=== PATIENT | female | born 1980 | race Two or more races ===

== ENCOUNTER → 2019-04-15 20:46 | Emergency (ER) | payer OTHER ==
[~2019-04-15 20:46] MED LIST: DOXYcycline CAP(*) 100 MG PO ONE
--- NOTE | 2019-04-15 23:25 | ED ---
Skin Complaint - HPI Summary HPI Summary: Patient complains of redness, swelling and possible abscess to left side face 1 week. Denies purulent discharge, fever, cough, sore throat, CP, SOB, N/V/D, abdominal pain, change in BM, change in urine. History of hidradenitis. - History of Current Complaint Chief Complaint: EDRashSkinAbscess Time Seen by Provider: 04/15/19 22:56 Stated Complaint: ABSCESS ON FACE PER PT Hx Obtained From: Patient Onset/Duration: Started Days Ago Skin Exposure Onset/Duration: Days Ago Timing: Constant Onset Severity: Mild Current Severity: Moderate Pain Intensity: 8 Pain Scale Used: 0-10 Numeric Skin Location: Discrete Aggravating Symptom(s): Nothing Alleviating Symptom(s): Nothing Associated Signs & Symptoms: Negative - Additional Pertinent History Primary Care Physician: RUDY - Allergy/Home Medications Allergies/Adverse Reactions: Allergies Allergy/AdvReac Type Severity Reaction Status Date / Time MS Shellfish Allergy Allergy Rash Verified 10/24/16 13:58 [Shellfish Allergy] PMH/Surg Hx/FS Hx/Imm Hx Endocrine/Hematology History: Reports: Hx Anemia - ON MEDICATION FOR Denies: Hx Diabetes Cardiovascular History: Denies: Hx Hypertension, Hx Pacemaker/ICD Respiratory History: Reports: Hx Asthma, Hx Sleep Apnea GI History: Reports: Hx Gastroesophageal Reflux Disease - ON MEDICATION FOR, Hx Jaundice - AT History: Denies: Hx Renal Disease Musculoskeletal History: Reports: Hx Back Problems, Hx Fibromyalgia, Hx Tendonitis - HX OF, Other Musculoskeletal History - FIBROMYALGIA Sensory History: Reports: Hx Contacts or Glasses - GLASSES Denies: Hx Hearing Aid Opthamlomology History: Reports: Hx Contacts or Glasses - GLASSES Neurological History: Reports: Hx Migraine - NOT OFTEN-IBUPROFEN, Other Neuro Impairments/Disorders - BIPOLAR Psychiatric History: Reports: Hx Anxiety, Hx Depression, Hx Panic Disorder, Hx Post Traumatic Stress Disorder, Hx Bipolar Disorder, Other Psychiatric Issues/ Disorders - BIPOLAR DISORDER Denies: Hx of Violent Episodes Against Others - Surgical History Surgery Procedure, Year, and Place: C SECTION 2006. GASTRIC BYPASS -2016 Hx Anesthesia Reactions: No Infectious Disease History: No Infectious Disease History: Denies: Traveled Outside the [place] in Last 30 Days - Family History Known Family History: Positive: Non-Contributory - Social History Alcohol Use: Occasionally Substance Use Type: Reports: None Smoking Status (MU): Former Smoker Type: Cigarettes Amount Used/How Often: 1-2 CIGARETTES PER DAY ON AND OFF FOR 5 YEARS Length of Time of Smoking/Using Tobacco: a few years Have You Smoked in the Last Year: Yes Review of Systems Constitutional: Negative Eyes: Negative ENT: Negative Cardiovascular: Negative Respiratory: Negative Gastrointestinal: Negative Genitourinary: Negative Musculoskeletal: Negative Skin: Other Neurological: Negative Psychological: Normal All Other Systems Reviewed And Are Negative: Yes Physical Exam - Summary Physical Exam Summary: 2 cm x 2 cm apical abscess left lower jaw. Triage Information Reviewed: Yes Vital Signs On Initial Exam: Initial Vitals Temp Pulse Resp BP Pulse Ox 97.3 F 65 18 197/97 100 04/15/19 20:49 04/15/19 20:49 04/15/19 20:49 04/15/19 20:49 04/15/19 20:49 Vital Signs Reviewed: Yes Appearance: Positive: Well-Appearing Skin: Positive: Warm Head/Face: Positive: Normal Head/Face Inspection Eyes: Positive: Normal ENT: Positive: Normal ENT inspection Neck: Positive: Supple Respiratory/Lung Sounds: Positive: Clear to Auscultation Cardiovascular: Positive: Normal Abdomen Description: Positive: Nontender Musculoskeletal: Positive: Normal Neurological: Positive: Normal Psychiatric: Positive: Normal AVPU Assessment: Alert - [place] Coma Scale Best Eye Response: 4 - Spontaneous Best Motor Response: 6 - Obeys Commands Best Verbal Response: 5 - Oriented Coma Scale Total: 15 Procedures - Incision and Drainage 1 Site: left side jaw Anesthesia: Local, Lidocaine Instrument(s): Scalpel Diagnostics - Vital Signs Vital Signs Temp Pulse Resp BP Pulse Ox 04/15/19 20:49 97.3 F 65 18 197/97 100 - Laboratory Lab Statement: Any lab studies that have been ordered have been reviewed, and results considered in the medical decision making process. Course/Dx - Course Course Of Treatment: Patient complains of redness, swelling and possible abscess to left side face 1 week. Denies purulent discharge, fever, cough, sore throat, CP, SOB, N/V/D, abdominal pain, change in BM, change in urine. History of hidradenitis. Vital signs within normal limits. I and D performed with positive purulent drainage. Patient started on doxycycline in the ED. Rx for same. - Diagnoses Provider Diagnoses: Abscess Discharge - Sign-Out/Discharge Documenting (check all that apply): Patient Departure Patient Received Moderate/Deep Sedation with Procedure: No - Discharge Plan Condition: Stable Disposition: HOME Prescriptions: DOXYcycline CAP(*) [DOXYcycline 100MG CAP(*)] 100 mg PO BID 7 Days #14 cap Patient Education Materials: Abscess (ED) Forms: *Work Release Referrals: Lora Jackman NP [Primary Care Provider] - Additional Instructions: Use warm compresses to help drain. Take antibiotic as directed. Return to the ED for any worsening symptoms. - Billing Disposition and Condition Condition: STABLE Disposition: Home
[2019-04-15 23:43] VITALS: BP 166/83
== END | disposition home or self-care (01) ==
LOC: ED 20:46
DX: L02.01 Cutaneous abscess of face (principal); D64.9 Anemia, unspecified; K21.9 Gastro-esophageal reflux disease without esophagitis; M79.7 Fibromyalgia; Z91.013 Allergy to seafood; Z87.891 Personal history of nicotine dependence
CPT/HCPCS: 10060; 99282; A9270-GY

== ENCOUNTER 2019-08-24 06:08 | Emergency (ER) | payer OTHER ==
--- OUTSIDE RECORDS SUMMARY | 2019-08-24 06:17 | XMS REPORT | Continuity of Care Document ---
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 Problems Active Problems Provider Date Chronic low back pain Erick Estrella MD Onset: 04/29/2017 History of bariatric surgical procedure Erick Estrella MD Onset: 10/05/2016 Body mass index 30+ - obesity Erick Estrella MD Onset: 10/05/2016 Bipolar disorder in remission Erick Estrella MD Onset: 10/05/2016 Migraine without aura Erick Estrella MD Onset: 10/05/2016 Obstructive sleep apnea syndrome Onset: 02/11/2015 Hidradenitis Rosanna Gustafson Onset: 05/13/2014 Allergic condition Rosanna Gustafson Onset: 05/13/2014 Social History Type Date Description Comments Sex Unknown Cigarette Use Former Cigarette Smoker quit 2013 ETOH Use Occasionally consumes alcohol Recreational Drug Use Denies Drug Use Tobacco Use Start: Unknown End: Patient is a former smoker Unknown Smoking Status Reviewed: 07/15/19 Patient is a former smoker Exercise Type/Frequency Exercises regularly 2x/ week Seat Belt/Car Seat Always uses seat belt Allergies, Adverse Reactions, Alerts Active Allergies Reaction Severity Comments Date Seasonal Allergies 03/29/2015 Ethinyl Estradiol red, dry skin on face/chest 11/08/2016 Shellfish-Derived Products 05/28/2017 Medications Active Medications SIG Qnty Indications Ordering Date Provider Lisinopril 1 by mouth every 30tabs Steven 07/15/2019 5mg Tablets day MD Tabitha Humira qc weekly Erick Estrella 04/29/2017 40mg/0.8ML PSKT MD Michael Sumatriptan Succinate take 1 tablet by 9tabs Erick Estrella 10/05/2016 mouth every 2 MD Michael 50mg Tablets hours as directed for headache Clindamycin Phosphate apply twice 120units L73.2 RafitawaltJaidenalice 2015 1% daily to s M.D. Solution affected area Hibiclens apply from neck 236units L73.2 Katherine Jeffrey 08/07/2016 4% Liquid down qd for 5 s M.D. days, let dry for 4-5 minutes before rinsing off Ibuprofen three times a 90tabs S22.41xD Erick Estrella 04/26/2016 600mg Tablets day as needed MD Michael Fexofenadine HCL 1 by mouth every 30tabs 995.3 Rosanna Gustafson 02/14/2016 180mg day Tablets Fluticasone Propionate 2 sprays each 1units J30.9 Rosanna Gustafson 2015 nostril everyday 50mcg/Act Suspension Clonazepam Take 1/2 Tablet Unknown 1mg Tablets In The Morning And 1 Tablet AT Bedtime as Needed For A Oxycodone-Acetaminophe Take 1 Tablet By Unknown n Mouth 3 Times A 10-325mg Tablets Day Cyclobenzaprine HCL Take 1 Tablet By Unknown 10mg Mouth Twice A Tablets Day as Needed For Spasm Albuterol Sulfate 1 vial via 100units Rosanna Gustafson nebulizer 4 (2.5mg/3ML) 0.083% times daily as Nebulizer needed Ventolin HFA 2 puffs by mouth 1units Rosanna Gustafson 108(90Base) four times a day mcg/Act Aerosol as needed Immunizations CPT Code Status Date Vaccine Lot # [id number] Given 11/26/2014 Influenza Vaccine (Fluvirin) 3 Years Of Age Or Older Vital Signs Date Vital Result Comment 07/15/2019 8:40am BP Systolic 126 mmHg BP Diastolic 78 mmHg Height 64 inches 5'4" Weight 173.00 lb BMI (Body Mass Index) 29.7 kg/m2 Last Menstrual Period [id number] 2 Parity 2 09/24/2017 11:03am BP Systolic 124 mmHg BP Diastolic 86 mmHg Height 64 inches 5'4" Weight 209.00 lb BMI (Body Mass Index) 35.9 kg/m2 Last Menstrual Period [id number] 2 Parity 2 Results Description No Information Available Procedures Description No Information Available Medical Devices Description No Information Available Encounters Description No Information Available Assessments Description No Information Available Plan of Treatment No Information Available Functional Status Description No Information Available Mental Status Description No Information Available Referrals Description No Information Available
[2019-08-24] MEDS ORDERED: Ibuprofen TAB* 600 MG PO ONE (08:49)
[2019-08-24] MEDS ORDERED: Ondansetron ODT TAB* 4 MG SL ONE (08:49)
[2019-08-24 09:01] LABS: ABS Eosinophils 0.1 10^3/ul (0-0.6); ABS Lymphocytes 1.1 10^3/ul (1.0-4.8); ABS Monocytes 0.5 10^3/ul (0-0.8); ABS Neutrophils 4.4 10^3/ul (1.5-7.7); Eosinophil % 0.9 %; Hematocrit 34 % (35-47); Hemoglobin 11.5 g/dL (12.0-16.0); Lymphocyte % 18.3 %; Mean Corpuscular HGB Conc 34 g/dL (31-36); Mean Corpuscular Hemoglobin 31 pg (27-31); Mean Corpuscular Volume 90 fL (80-97); Mean Platelet Volume 9.9 fL (7.4-10.4); Nucleated Red Blood Cells % 0.1; Platelet Count 178 10^3/uL (150-450); Red Blood Count 3.77 10^6 /uL (3.70-4.87); Red Cell Distribution Width 13 % (10-15); White Blood Count 6.1 10^3/uL (3.5-10.8)
--- NOTE | 2019-08-24 09:26 | ED ---
Abdominal Pain/Female - HPI Summary HPI Summary: Patient is a 39-year-old female presenting with left sided abdominal pain. Patient states that she began having abdominal pain on Alexsander morning that has been constant since. Pain is localized to left side of abdomen. Admits to nausea and dry heaving, with no vomiting. Decreased oral intake for the last 3 days d/t nausea. Denies diarrhea, constipation. Continues to pass gas. Denies urinary frequency, burning, hematuria. LMP began 2 weeks ago and has been persistent. No PMH of PCOS, ovarian torsion, or ovarian cysts. No fevers, sweats, chills or back pain. No chance or hx of STD. No vaginal discharge or pain. Denies OCP use. - History of Current Complaint Chief Complaint: EDAbdPain Stated Complaint: ABD PAIN PER PT Time Seen by Provider: 08/24/19 08:10 Hx Obtained From: Patient Hx Last Menstrual Period: Started 2 weeks ago, current spotting Onset/Duration: Lasting Days Timing: Constant Severity Initially: Moderate Severity Currently: Moderate Pain Intensity: 8 Pain Scale Used: 0-10 Numeric Location: Discrete At: LLQ Aggravating Factor(s): Nothing Alleviating Factor(s): Nothing Associated Signs and Symptoms: Positive: Vaginal Bleeding, Nausea. Negative: Fever, Chest Pain, Constipation, Urinary Symptoms, Vomiting, Diarrhea Allergies/Adverse Reactions: Allergies Allergy/AdvReac Type Severity Reaction Status Date / Time drospirenone [From KISHOR (28)] Allergy See Comment Verified 08/24/19 06:12 ethinyl estradiol Allergy See Comment Verified 08/24/19 06:12 [From KISHOR (28)] MS Shellfish Allergy Allergy Rash Verified 08/24/19 06:12 [Shellfish Allergy] Home Medications: Home Medications Adalimumab (NF) [Humira Pen (NF)] 40 mg SUBCUT WEEKLY 08/24/19 [History Confirmed 08/24/19] Clindamycin 1% TOPICAL(NF) [Cleocin-T 1% TOPICAL(NF)] 1 applic TOPICAL BID 08/24 [History Confirmed 08/24/19] Fexofenadine (NF) [Kenia 180 (NF)] 180 mg PO DAILY 08/24/19 [History Confirmed 08/24/19] Fluticasone NASAL SPRAY 50MCG* [Flonase NASAL SPRAY 50MCG*] 2 spray BOTH NARES DAILY 08/24/19 [History Confirmed 08/24/19] Iron 65 mg PO DAILY 08/24/19 [History Confirmed 08/24/19] Lisinopril TAB* [Prinivil TAB*] 5 mg PO DAILY 08/24/19 [History Confirmed ] SUMAtriptan TAB* [Imitrex TAB*] 50 mg PO Q2H PRN 08/24/19 [History Confirmed 06/04] PMH/Surg Hx/FS Hx/Imm Hx Previously Healthy: Yes Endocrine/Hematology History: Reports: Hx Anemia - ON MEDICATION FOR Denies: Hx Diabetes Cardiovascular History: Denies: Hx Hypertension, Hx Pacemaker/ICD Respiratory History: Reports: Hx Asthma, Hx Sleep Apnea GI History: Reports: Hx Gastroesophageal Reflux Disease - ON MEDICATION FOR, Hx Jaundice - AT History: Denies: Hx Renal Disease Musculoskeletal History: Reports: Hx Back Problems, Hx Fibromyalgia, Hx Tendonitis - HX OF, Other Musculoskeletal History - FIBROMYALGIA Sensory History: Reports: Hx Contacts or Glasses - GLASSES Denies: Hx Hearing Aid Opthamlomology History: Reports: Hx Contacts or Glasses - GLASSES Neurological History: Reports: Hx Migraine - NOT OFTEN-IBUPROFEN, Other Neuro Impairments/Disorders - BIPOLAR Psychiatric History: Reports: Hx Anxiety, Hx Depression, Hx Panic Disorder, Hx Post Traumatic Stress Disorder, Hx Bipolar Disorder, Other Psychiatric Issues/ Disorders - BIPOLAR DISORDER Denies: Hx of Violent Episodes Against Others - Surgical History Surgery Procedure, Year, and Place: C SECTION 2006. GASTRIC BYPASS -2016 Hx Anesthesia Reactions: No - Immunization History Hx Pertussis Vaccination: No Immunizations Up to Date: Yes Infectious Disease History: No Infectious Disease History: Denies: Traveled Outside the [place] in Last 30 Days - Family History Known Family History: Positive: Non-Contributory - Social History Occupation: Unemployed Lives: With Family Alcohol Use: Occasionally Hx Substance Use: Yes Substance Use Type: Reports: Marijuana Substance Use Comment - Amount & Last Used: 2 weeks ago Hx Tobacco Use: Yes Smoking Status (MU): Former Smoker Type: Cigarettes Amount Used/How Often: 1-2 CIGARETTES PER DAY ON AND OFF FOR 5 YEARS Length of Time of Smoking/Using Tobacco: a few years Have You Smoked in the Last Year: Yes Review of Systems Positive: Chills. Negative: Fever, Fatigue Eyes: Negative ENT: Negative Cardiovascular: Negative Negative: Palpitations, Chest Pain Respiratory: Negative Negative: Shortness Of Breath, Cough Positive: Abdominal Pain - LLQ, Nausea. Negative: Vomiting, Diarrhea Genitourinary: Negative Positive: no symptoms reported. Negative: burning, dysuria, frequency, flank pain Musculoskeletal: Negative Negative: Myalgia Skin: Negative Neurological: Negative Psychological: Normal All Other Systems Reviewed And Are Negative: Yes Physical Exam Triage Information Reviewed: Yes Vital Signs On Initial Exam: Initial Vitals Temp Pulse Resp BP Pulse Ox 97.5 F 72 15 149/97 100 08/24/19 06:10 08/24/19 06:10 08/24/19 06:10 08/24/19 06:10 08/24/19 06:10 Vital Signs Reviewed: Yes Appearance: Positive: Well-Appearing, Well-Nourished, Pain Distress - mild- moderate pain distress Skin: Positive: Warm, Skin Color Reflects Adequate Perfusion, Dry Head/Face: Positive: Normal Head/Face Inspection Eyes: Positive: Normal, EOMI, ALESSANDRA, Conjunctiva Clear ENT: Positive: Normal ENT inspection Neck: Positive: Supple, Nontender, No Lymphadenopathy Respiratory/Lung Sounds: Positive: Clear to Auscultation, Breath Sounds Present. Negative: Rales, Rhonchi, Wheezes Cardiovascular: Positive: Normal, RRR, S1, S2. Negative: Murmur, Rub Abdomen Description: Positive: No Organomegaly, Soft, Other: - LLQ tenderness, suprapubic tenderness. Negative: CVA Tenderness (R), CVA Tenderness (L), Guarding, Hepatomegaly, Peritoneal Signs, Pulsatile Mass, Splenomegaly Bowel Sounds: Positive: Present Musculoskeletal: Positive: Normal Neurological: Positive: Normal, Alert, Oriented to Person Place, Time, CN Intact II-III Psychiatric: Positive: Normal, Anxious - [place] Coma Scale Best Eye Response: 4 - Spontaneous Best Motor Response: 6 - Obeys Commands Best Verbal Response: 5 - Oriented Coma Scale Total: 15 Procedures - Sedation Patient Received Moderate/Deep Sedation with Procedure: No Diagnostics - Vital Signs Vital Signs Temp Pulse Resp BP Pulse Ox 08/24/19 08:31 64 99 08/24/19 08:29 67 132/93 99 08/24/19 06:10 97.5 F 72 15 149/97 100 - Laboratory Lab Results: Lab Results 08/24/19 Range/Units 08:51 WBC 6.1 (3.5-10.8) 10^3/uL RBC 3.77 (3.70-4.87) 10^6 /uL Hgb 11.5 L (12.0-16.0) g/dL Hct 34 L (35-47) % MCV 90 (80-97) fL MCH 31 (27-31) pg MCHC 34 (31-36) g/dL RDW 13 (10-15) % Plt Count 178 (150-450) 10^3/uL MPV 9.9 (7.4-10.4) fL Neut % (Auto) 72.6 % Lymph % (Auto) 18.3 % [place] % (Auto) 7.9 % Eos % (Auto) 0.9 % Baso % (Auto) 0.3 % Absolute Neuts (auto) 4.4 (1.5-7.7) 10^3/ul Absolute Lymphs (auto) 1.1 (1.0-4.8) 10^3/ul Absolute Monos (auto) 0.5 (0-0.8) 10^3/ul Absolute Eos (auto) 0.1 (0-0.6) 10^3/ul Absolute Basos (auto) 0.0 (0-0.2) 10^3/ul Absolute Nucleated RBC 0.0 10^3/ul Nucleated RBC % 0.1 Result Diagrams: 08/24/19 08:51 08/24/19 08:51 Lab Statement: Any lab studies that have been ordered have been reviewed, and results considered in the medical decision making process. Abdominal Pain Fem Course/Dx - Course Course Of Treatment: During his course of treatment, the patient is evaluated for left-sided lower abdominal pain which is nonradiating. She denies any urinary symptoms or back pain. She states she had a "intestinal infection" several years ago into the left lower side, however at that time had symptoms of profuse vomiting, constipation and a blockage of the intestine which required a 2 day stay at [facility] [place]. She states she continues to have normal bowel movements. Menses present 2 weeks in which she describes as "spotting." Patient appears in mild acute distress, noting pain directly over the LLQ without associated vaginal symptoms or pain. She endorses nausea with no vomiting. She is given Zofran by mouth on arrival as well as ibuprofen. Labs obtained which are WNL. UA negative. On palpation, there is tenderness to the LLQ. Last BM normal and this morning. TVUS obtained which shows: IMPRESSION: FIBROID UTERUS. NO SONOGRAPHIC FEATURES OF TORSION. PLEASE NOTE THAT PARTIAL OR INTERMITTENT TORSION MAY BE SONOGRAPHICALLY NORMAL. Discussed treatment options with the patient. She continues to endorse pain to the left side and I have offered a CT scan at this time to further evaluate her symptoms. She will be discharged home with prescription for Zofran and will return if she has any worsening symptoms. I discussed if she develops any fevers, sweats, chills, worsening of lower quadrant pain, she will return to the ED immediately. Otherwise, she'll follow up with PCP. - Diagnoses Differential Diagnosis: Positive: Bowel Obstruction, Constipation, Diverticulitis, Irritable Bowel Syndrome, Ovarian Cyst, Other - fibroid uterus, ovarian torsion Provider Diagnoses: Abdominal pain Discharge ED - Sign-Out/Discharge Documenting (check all that apply): Patient Departure - Discharge Plan Condition: Stable Disposition: HOME Prescriptions: Ondansetron ODT TAB* [Zofran 4 MG Odt TAB*] 4 mg PO Q6H PRN #12 tab.odt MDD 4 PRN Reason: Nausea Patient Education Materials: Acute Abdominal Pain (ED) Referrals: Lora Jackman NP [Primary Care Provider] - Additional Instructions: Please follow up with obgyn regarding fibroid uterus It is unclear if this is the cause of your pain If you develop any worsening pain, please return to the ED You have been prescribed zofran for nausea Moist heat to the area may help your symptoms - Billing Disposition and Condition Condition: STABLE Disposition: Home
[2019-08-24 09:30] LABS: ALT 7 U/L (7-52); AST 10 U/L (13-39); Albumin 3.8 g/dL (3.2-5.2); Alkaline Phosphatase 46 U/L (34-104); Anion Gap 9 mmol/L (2-11); BUN/Creatinine Ratio 11.9 (8-20); Blood Urea Nitrogen 8 mg/dL (6-24); CO2 Carbon Dioxide 25 mmol/L (22-32); Calcium 8.8 mg/dL (8.6-10.3); Chloride 105 mmol/L (101-111); EGFR African American 119.8 (>60); Globulin 3.7 g/dL (2-4); Glucose 96 mg/dL (70-100); Potassium 3.4 mmol/L (3.5-5.0); Sodium 139 mmol/L (135-145); Total Protein 7.5 g/dL (6.4-8.9)
[2019-08-24 09:34] LABS: HCG Pregnancy < 0.60 mIU/mL
[2019-08-24 10:33] LABS: Urine Appearance Cloudy; Urine Bilirubin Negative (Negative); Urine Blood 1+ (Negative); Urine Color Yellow; Urine Glucose Negative (Negative); Urine Ketones 1+ (Negative); Urine Nitrite Negative (Negative); Urine Protein Negative (Negative); Urine Specific Gravity 1.016 (1.010-1.030); Urine Urobilinogen Negative (Negative)
[2019-08-24 10:42] LABS: Urine Bacteria Absent (Absent); Urine Red Blood Cell Absent (Absent); Urine Squamous Epithelial Cell Present (Absent); Urine White Blood Cell Trace(0-5/hpf) (Absent)
[2019-08-24 10:49] VITALS: BP 139/77
== END 2019-08-24 10:53 | disposition home or self-care (01) ==
LOC: ED 06:08
DX: R10.9 Unspecified abdominal pain (principal); D25.9 Leiomyoma of uterus, unspecified; D64.9 Anemia, unspecified; K21.9 Gastro-esophageal reflux disease without esophagitis; F41.9 Anxiety disorder, unspecified; F31.9 Bipolar disorder, unspecified; F43.10 Post-traumatic stress disorder, unspecified; Z87.891 Personal history of nicotine dependence; Z98.84 Bariatric surgery status; Z79.899 Other long term (current) drug therapy; Z88.8 Allergy status to other drugs, medicaments and biological substances
CPT/HCPCS: 36415; 76830; 80053; 81003; 81015; 84702; 85025; 87086; 99283; A9270-GY

== ENCOUNTER 2019-09-02 17:21 | Emergency (ER) | payer OTHER ==
[2019-09-02] MEDS ORDERED: Thiamine IV 100 MG, Folic Acid IV* 1 MG, Multiple Vitamin IV ADULT* 10 ML in NS 0.9% 10... IV ONE (19:35)
[2019-09-02] MEDS ORDERED: Ondansetron INJ* 2 MG/ML VIAL IV ONE (19:35)
[2019-09-02] MEDS ORDERED: Morphine 4 MG/ML VIAL (1 ml) 4 MG/ML VIAL IV ONE ×2 (19:35→21:06)
--- NOTE | 2019-09-02 19:39 | ED ---
Abdominal Pain/Female - HPI Summary HPI Summary: 39-year-old female status post Kaley-en-Y gastric bypass in 2016 presents to the emergency department today complaining of left lower quadrant pain that is radiating towards her umbilicus. Patient says she was referred here by her primary care provider for possible CT scan for investigation of her symptoms. Patient endorses being in the emergency department last week for similar symptoms. She currently endorses 10 out of 10 left lower quadrant pain which is "stabbing/burning". Patient states she has associated nausea, vomiting. She denies fever, changes in bowel movements, blood per rectum, rash. Family history and social history noncontributory. - History of Current Complaint Chief Complaint: EDAbdPain Stated Complaint: ABD PAIN PER PT Time Seen by Provider: 09/02/19 19:28 Hx Obtained From: Patient Hx Last Menstrual Period: Started 2 weeks ago, current spotting Onset/Duration: Gradual Onset Timing: Constant Severity Initially: Severe Severity Currently: Severe Pain Intensity: 10 Pain Scale Used: 0-10 Numeric Location: Diffuse, Discrete At: LLQ Radiates: No Character: Cramping Aggravating Factor(s): Movement Alleviating Factor(s): Nothing Associated Signs and Symptoms: Negative: Diaphoresis, Fever, Cough, Chest Pain, Back Pain, Constipation, Blood in Stool, Urinary Symptoms, Decreased Appetite, Vaginal Discharge, Nausea, Vomiting, Diarrhea Allergies/Adverse Reactions: Allergies Allergy/AdvReac Type Severity Reaction Status Date / Time drospirenone [From KISHOR (28)] Allergy See Comment Verified 08/24/19 06:12 ethinyl estradiol Allergy See Comment Verified 08/24/19 06:12 [From KISHOR (28)] MS Shellfish Allergy Allergy Rash Verified 08/24/19 06:12 [Shellfish Allergy] PMH/Surg Hx/FS Hx/Imm Hx Endocrine/Hematology History: Reports: Hx Anemia - ON MEDICATION FOR Denies: Hx Diabetes Cardiovascular History: Denies: Hx Hypertension, Hx Pacemaker/ICD Respiratory History: Reports: Hx Asthma, Hx Sleep Apnea GI History: Reports: Hx Gastroesophageal Reflux Disease - ON MEDICATION FOR, Hx Jaundice - AT History: Denies: Hx Renal Disease Musculoskeletal History: Reports: Hx Back Problems, Hx Fibromyalgia, Hx Tendonitis - HX OF, Other Musculoskeletal History - FIBROMYALGIA Sensory History: Reports: Hx Contacts or Glasses - GLASSES Denies: Hx Hearing Aid Opthamlomology History: Reports: Hx Contacts or Glasses - GLASSES Neurological History: Reports: Hx Migraine - NOT OFTEN-IBUPROFEN, Other Neuro Impairments/Disorders - BIPOLAR Psychiatric History: Reports: Hx Anxiety, Hx Depression, Hx Panic Disorder, Hx Post Traumatic Stress Disorder, Hx Bipolar Disorder, Other Psychiatric Issues/ Disorders - BIPOLAR DISORDER Denies: Hx of Violent Episodes Against Others - Surgical History Surgery Procedure, Year, and Place: C SECTION 2007. GASTRIC BYPASS -2016 Hx Anesthesia Reactions: No Infectious Disease History: No Infectious Disease History: Denies: Traveled Outside the [place] in Last 30 Days - Family History Known Family History: Positive: Non-Contributory - Social History Alcohol Use: Occasionally Hx Substance Use: Yes Substance Use Type: Reports: Marijuana Substance Use Comment - Amount & Last Used: 2 weeks ago Hx Tobacco Use: Yes Smoking Status (MU): Former Smoker Type: Cigarettes Amount Used/How Often: 1-2 CIGARETTES PER DAY ON AND OFF FOR 5 YEARS Length of Time of Smoking/Using Tobacco: a few years Have You Smoked in the Last Year: Yes Review of Systems Constitutional: Negative Eyes: Negative ENT: Negative Cardiovascular: Negative Respiratory: Negative Positive: Abdominal Pain, Nausea. Negative: Vomiting, Diarrhea Genitourinary: Negative Musculoskeletal: Negative Skin: Negative Neurological: Negative Psychological: Normal All Other Systems Reviewed And Are Negative: Yes Physical Exam Triage Information Reviewed: Yes Vital Signs On Initial Exam: Initial Vitals Temp Pulse Resp BP Pulse Ox 98.0 F 78 16 152/113 99 09/02/19 17:23 09/02/19 17:23 09/02/19 17:23 09/02/19 17:23 09/02/19 17:23 Vital Signs Reviewed: Yes Appearance: Positive: Well-Appearing, Well-Nourished. Negative: No Pain Distress Skin: Positive: Warm, Skin Color Reflects Adequate Perfusion Eyes: Positive: EOMI, ALESSANDRA ENT: Positive: Hearing grossly normal Respiratory/Lung Sounds: Positive: Clear to Auscultation, Breath Sounds Present Cardiovascular: Positive: RRR, S1, S2 Abdomen Description: Positive: Nontender, No Organomegaly, Soft, Other: - Negative Rovsing, McBurney's, obturator, psoas sign. Negative: CVA Tenderness ( R), CVA Tenderness (L), Distended, Guarding, McBurney's Point Tenderness, Peritoneal Signs, Pulsatile Mass Bowel Sounds: Positive: Present Musculoskeletal: Positive: Strength/ROM Intact Neurological: Positive: Sensory/Motor Intact, Alert, Oriented to Person Place, Time, Normal Gait, Speech Normal Psychiatric: Positive: Normal AVPU Assessment: Alert Procedures - Sedation Patient Received Moderate/Deep Sedation with Procedure: No Diagnostics - Vital Signs Vital Signs Temp Pulse Resp BP Pulse Ox 09/02/19 17:23 98.0 F 78 16 152/113 99 - Laboratory Result Diagrams: 09/02/19 19:48 09/02/19 19:48 Lab Statement: Any lab studies that have been ordered have been reviewed, and results considered in the medical decision making process. Abdominal Pain Fem Course/Dx - Course Course Of Treatment: Patient was evaluated in the emergency department today for abdominal pain. Laboratory showing no leukocytosis or sinus infection. CRP is mildly elevated at 65.2. No electrolyte derangements aside from potassium of 2.9 which was replaced using 40meq of oral potassium. CT scan of the abdomen and pelvis with contrast was performed which showed evidence of a left adnexal cystic structure and an unopacified bowel loop. General surgeon Dr. Martinez was consulted and suggested to have a delayed CT abdomen and pelvis repeated to investigate the nonvisible section of colon and to have an ultrasound done to evaluate adnexal cyst. Delayed CT of the abdomen and pelvis revealed no evidence of intestinal pathology and agreed with ultrasound which suggested 3.9 cm left ovarian parapelvic cyst. Patient was given 8 mg of morphine in the emergency department as well as IV Toradol for her symptoms. Patient is to follow up with her primary care physician as an outpatient for further evaluation and management of her symptoms. - Diagnoses Differential Diagnosis: Positive: Bowel Obstruction, Constipation, Diverticulitis, Ovarian Cyst - Do not, Urinary Tract Infection Provider Diagnoses: S/P gastric bypass, Abdominal pain - Provider Notifications Discussed Care Of Patient With: Job Lemon - suggested to obtain ultrasound of the abdomen and repeat delayed abdominal CT without contrast approximately 3 hours after the first. Time Discussed With Above Provider: 22:39 Discharge ED - Sign-Out/Discharge Documenting (check all that apply): Patient Departure - Discharge Plan Condition: Stable Disposition: HOME Patient Education Materials: Ovarian Cyst (ED) Forms: *Work Release Referrals: Lora Jackman NP [Primary Care Provider] - 3 Days Additional Instructions: You were seen in the emergency department today and diagnosed with a left adnexal cystic lesion measuring 3.2 cm. Most likely an ovarian cyst and will resolve on its own. Please follow up with your primary care provider in 3 days for further evaluation and management of your symptoms. Please take 600 mg every 6 hours ibuprofen for relief of pain. Please return to the emergency Department immediately if you develop any new or worsening symptoms. - Billing Disposition and Condition Condition: STABLE Disposition: Home - Attestation Statements Provider Attestation: I was available for consult. This patient was seen by the [facility]. The patient was not presented to, seen by, or examined by me. Quang Jeffery MD
[2019-09-02] MEDS ORDERED: NS 0.9% 1000 ML** 1,000 ML ONE (19:44)
[2019-09-02 19:55] LABS: ABS Eosinophils 0.1 10^3/ul (0-0.6); ABS Lymphocytes 1.4 10^3/ul (1.0-4.8); ABS Monocytes 0.5 10^3/ul (0-0.8); ABS Neutrophils 6.5 10^3/ul (1.5-7.7); Eosinophil % 0.6 %; Hematocrit 33 % (35-47); Hemoglobin 11.2 g/dL (12.0-16.0); Lymphocyte % 16.2 %; Mean Corpuscular HGB Conc 34 g/dL (31-36); Mean Corpuscular Hemoglobin 30 pg (27-31); Mean Corpuscular Volume 88 fL (80-97); Mean Platelet Volume 9.3 fL (7.4-10.4); Platelet Count 235 10^3/uL (150-450); Red Blood Count 3.76 10^6 /uL (3.70-4.87); Red Cell Distribution Width 13 % (10-15); White Blood Count 8.4 10^3/uL (3.5-10.8)
[2019-09-02 20:12] LABS: ALT 7 U/L (7-52); AST 10 U/L (13-39); Albumin 3.6 g/dL (3.2-5.2); Albumin/Globulin Ratio 0.9 (1-3); Alkaline Phosphatase 43 U/L (34-104); Anion Gap 9 mmol/L (2-11); BUN/Creatinine Ratio 12.5 (8-20); Blood Urea Nitrogen 9 mg/dL (6-24); CO2 Carbon Dioxide 26 mmol/L (22-32); Calcium 8.7 mg/dL (8.6-10.3); Chloride 101 mmol/L (101-111); EGFR African American 110.3 (>60); EGFR Non-African American 91.1 (>60); Globulin 3.9 g/dL (2-4); Glucose 105 mg/dL (70-100); Magnesium 1.9 mg/dL (1.9-2.7); Potassium 2.9 mmol/L (3.5-5.0); Sodium 136 mmol/L (135-145); Total Protein 7.5 g/dL (6.4-8.9)
[2019-09-02 20:17] LABS: HCG Pregnancy < 0.60 mIU/mL
[2019-09-02] MEDS ORDERED: Iohexol 300* (CONTRAST) 10 ML SDV IV ONE (20:47)
[2019-09-02] MEDS ORDERED: Potassium Chlor TAB* 20 MEQ TAB.ER PO ONE (21:05)
[2019-09-02 21:37] LABS: Urine Appearance Cloudy; Urine Bacteria Absent (Absent); Urine Bilirubin Negative (Negative); Urine Blood 3+ (Negative); Urine Glucose Negative (Negative); Urine Ketones 1+ (Negative); Urine Nitrite Negative (Negative); Urine Protein 2+(100 mg/dL) (Negative); Urine Red Blood Cell 3+(>10/hpf) (Absent); Urine Specific Gravity 1.025 (1.010-1.030); Urine Squamous Epithelial Cell Present (Absent); Urine Urobilinogen Negative (Negative); Urine White Blood Cell 3+(>20/hpf) (Absent)
[2019-09-02 21:39] LABS: Urine Color Red
[2019-09-03] MEDS ORDERED: Ketorolac INJ* 30 MG/ML 1 ML VIAL IV PUSH ONE (01:11)
[2019-09-03 02:09] VITALS: BP 168/92
== END 2019-09-03 02:00 | disposition home or self-care (01) ==
LOC: ED 17:21
DX: R10.9 Unspecified abdominal pain (principal); Z98.84 Bariatric surgery status; Z87.891 Personal history of nicotine dependence; R11.0 Nausea; K21.9 Gastro-esophageal reflux disease without esophagitis; Z79.899 Other long term (current) drug therapy
CPT/HCPCS: 36415; 74176; 74177; 76857; 80053; 81003; 81015; 83605; 83690; 83735; 84702; 85025; 86140; 87086; 96365; 96366; 96375; 96376; 99282; A9270-GY; J1885; J2270; J2405; J3411; Q9967